=== PATIENT | male | born 1995 | race Caucasian/White ===

== ENCOUNTER 2022-10-18 10:25 | Emergency (ER) | payer SELFPAY ==
[2022-10-18 10:43] VITALS: BP 132/83; PULSE 73; RESP 17; TEMP 37.3; O2SAT 97; BMI 21.7
--- NOTE | 2022-10-18 11:15 | XRR_ITS ---
PROCEDURE INFORMATION: Exam: XR Chest Exam date and time: 10/18/2022 11:38 AM Age: 27 years old Clinical indication: Shortness of breath; Additional info: Cough SOB, covid symptoms TECHNIQUE: Imaging protocol: Radiologic exam of the chest. Views: 1 view. COMPARISON: No relevant prior studies available. FINDINGS: Lungs: Unremarkable. No consolidation. Pleural spaces: Unremarkable. No pleural effusion. No pneumothorax. Heart/Mediastinum: Unremarkable. No cardiomegaly. Bones/joints: Unremarkable. XR/XR chest 1V portable [id number] IMPRESSION: No acute findings.
--- NOTE | 2022-10-18 11:15 | W.ED.COVID ---
HPI - COVID General: Chief Complaint: COVID symptoms Stated Complaint: NVD/Fever Time Seen by Provider: 10/18/22 10:51 History of Present Illness: Patient is a 27-year-old man that presents to the emergency department with complaints of nausea vomiting diarrhea sore throat and headache. Onset of symptoms 2 days ago. Patient has had unknown COVID exposure. Patient unsure if he has been running fevers Patient denies any abdominal pain other when vomiting Denies chest pain or shortness of breath Denies weight gain weight loss Denies dysuria symptoms COVID Results: SARS-CoV-2 Antigen (Rapid) positive (Negative) H 10/18/22 11:20 Review of Systems General: Reports: 10 or more systems reviewed and unremarkable except in HPI and below Physical Exam Const: COMMON NORMALS: no acute distress, patient oriented x3 and alert GENERAL APPEARANCE: cooperative ORIENTATION/CONSCIOUSNESS: Yes awake, Yes oriented to person, Yes oriented to place and Yes oriented to time HENMT: COMMON NORMALS: normocephalic and atraumatic HEAD & SCALP: normocephalic and atraumatic FACE & SINUS: normal facial exam MOUTH: Normal oral and palatal mucosa present THROAT: posterior oropharynx normal Eye: COMMON NORMALS: Equal, round and reactive pupils present, EOMs intact bilaterally, conjunctivae normal and no scleral icterus GENERAL EYE: appearance normal, both eyes and all related structures ALIGNMENT: Yes alignment normal PERIORBITAL: periorbital findings normal CONJUNCTIVA: Yes conjunctivae normal PUPIL: Yes Equal, round and reactive pupils present Neck/C-Spine: COMMON NORMALS: full ROM GENERAL: Yes normal visual inspection Lymph: LYMPHATIC: no lymphadenopathy noted Chest: COMMONS NORMALS: normal inspection of the chest Breast/axilla inspection: Yes no chest deformity, asymmetry, normal contours, no nodules, masses, tenderness Resp: COMMON NORMALS: normal respiratory effort, No retractions, No use of accessory muscles and clear to auscultation bilaterally EFFORT & INSPECTION: Yes able to speak in complete sentences and Yes symmetric chest movement AUSCULTATION: clear to auscultation bilaterally Cardio: COMMON NORMALS: regular rate, regular rhythm and Peripheral pulses 2+ throughout RATE: regular rate RHYTHM: regular rhythm PERIPHERAL PULSES: Peripheral pulses 2+ throughout GI: COMMON NORMALS: Normal to inspection, nondistended, normoactive bowel sounds present, Soft to palpation, non-tender and No hepatosplenomegaly present INSPECTION: Yes normal to inspection AUSCULTATION: Yes normoactive bowel sounds PALPATION: Yes Soft to palpation and Yes No hepatosplenomegaly present RECTAL EXAM: Yes deferred Extremity: COMMON NORMALS: normal to inspection GENERAL: Yes normal exam except as noted Neuro: COMMON NORMALS: patient oriented x3 SENSORIUM/ORIENTATION: Yes alert, Yes oriented to person, Yes oriented to place and Yes oriented to time CRANIAL NERVES: Yes CN normal except as noted Psych: COMMON NORMALS: mental status grossly normal, Normal thought process present, cooperative, activity/motor behavior normal, denies homicidal ideation and denies suicidal ideation THOUGHT PROCESS: Normal thought process present Skin: COMMON NORMALS: no rashes or lesions noted, no wounds and turgor normal GENERAL SKIN EXAM: no rashes or lesions noted and turgor normal Course Vital Signs: Vital signs: Vital Signs Temperature 99.1 F 10/18/22 10:43 Pulse Rate 50 L 10/18/22 12:30 Respiratory Rate 18 10/18/22 11:19 Blood Pressure 121/76 10/18/22 11:19 Pulse Oximetry 100 10/18/22 12:30 Oxygen Delivery Me thod Room Air 10/18/22 12:30 MDM - COVID Medical Decision Making Patient was evaluated in the emergency department for complaints of COVID-like symptoms. Differential diagnoses include: COVID, pneumonia, bronchitis, URI, pharyngitis, migraine Patient underwent chest x-ray and a COVID test. COVID-positive Chest x-ray is negative Patient was treated here in the emergency department with Zofran and Toradol. Seen and discharged home on the same medications. He needs supportive care. This includes regular exercise and plenty of fluids Patient needs to continue quarantining. Onset of symptoms were 2 days ago. States today is day 2. He needs to quarantine through ?10/22/2022 If he is running a fever after that he needs to continue to quarantine All questions answered Lab Data Radiology Impressions Chest X-Ray 10/18/22 11:15 IMPRESSION: No acute findings. Laboratory Results SARS-CoV-2 Ag (Rapid) positive (Negative) H 10/18/22 11:20 SARS-CoV-2 Antigen (Rapid) positive (Negative) H 10/18/22 11:20 Discharge Plan Discharge Patient Disposition: Home Clinical Impression: COVID Condition: Stable Prescriptions: New ondansetron 4 mg tablet,disintegrating 4 mg PO Q8H 5 Days Qty: 15 0RF ketorolac 10 mg tablet 10 mg PO TID PRN (Reason: pain) 5 Days Qty: 15 0RF Discharge Orders: Discharge ED (Routine); Ordered 10/18/22 Ordered By: Jose Martin Salomon Discharge Diet: Advance as tolerated Discharge Activity: Resume usual activity Patient Instructions: How To Wash Your Hands (ED), Droplet Precautions (ED), COVID-19 (Coronavirus Disease 2019) (ED), COVID-19: Slow the Coronavirus Spread (ED), Pain Management Activity Restrictions/Additional Instructions: Quarantine until 10/22/2022 If you are still running a temperature you need to continue quarantine Stand Alone Forms: Work/School Release Coding Level of Care Code 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
[2022-10-18 11:19] VITALS: BP 121/76; PULSE 69; RESP 18; O2SAT 97
[2022-10-18 11:44] VITALS: O2SAT 97
[2022-10-18 12:24] LABS: SARS Covid-2 Antigen positive (Negative)
[2022-10-18 12:30] VITALS: PULSE 50; O2SAT 100
[2022-10-18] MEDS: ondansetron 4 MG Tablet PO (13:23)
[2022-10-18] MEDS: ketorolac 60 mg/2 mL INJ IM (13:26)
[2022-10-18 13:27] VITALS: PULSE 54; O2SAT 99
== END 2022-10-18 13:28 | disposition home or self-care (01) ==
PROVIDERS: Emergency Provider Nurse Practitioner
DX: U07.1 COVID-19 (principal)
CPT/HCPCS: 71045; 87426; 96372; 99284; J1885; Q0162

== ENCOUNTER 2023-08-21 10:46 | Emergency (ER) | payer MEDICAID, SELFPAY ==
[2023-08-21 11:02] VITALS: BP 110/69; PULSE 76; RESP 18; TEMP 36.7; O2SAT 99; BMI 21.7
[2023-08-21 12:12] LABS: Add Urine Microscopic? NO; Charge for UA Resulting for Rev
[2023-08-21 12:14] LABS: Bilirubin Urine Neg (Negative); Blood Urine Neg (Negative); Glucose Urine UA Norm (Normal); Ketones Urine Negative (Negative); Leukocyte Esterase Urine Negative (Negative); Nitrate Urine Negative (Negative); Protein Urine Neg (Negative); Specific Gravity, Urine 1.015 (1.005-1.030); Urine Appearance Clear (CLEAR); Urine Color Yellow (Yellow); Urobilinogen Urine Norm (Negative); pH Urine 5 (5-7)
--- NOTE | 2023-08-21 12:14 | ED_ITS ---
HPI - Male Genitourinary General: Chief complaint: Urogenital-Male Stated complaint: unable to pee Time Seen by Provider: 08/21/23 10:53 Source: patient Mode of arrival: ambulatory Limitations: no limitations History of Present Illness: 28-year-old male states he has noticed a lump at the base of his penis on the left side over the last 2 to 3 days. States has had some pain he had some difficulty urinating as well. He denies any severe dysuria denies any penile discharge. Denies any testicle pain. Associated symptoms: Deny nausea or vomiting Review of Systems Const: Denies: fever(s), chills, body aches or change in appetite ENMT: Denies: throat pain or dental pain Card: Denies: chest pain Resp: Denies: dyspnea GI: Denies: abdominal pain, nausea, vomiting or diarrhea : Reports: difficulty starting urination and genital pain Musc: Denies: neck pain or back pain Skin/Breast: Denies: rash Neuro: Denies: headache(s) Physical Exam Const: COMMON NORMALS: no acute distress, patient oriented x3 and healthy appearing HENMT: COMMON NORMALS: normocephalic and atraumatic HEAD & SCALP: normocephalic and atraumatic Neck/C-Spine: COMMON NORMALS: full ROM Chest: COMMONS NORMALS: normal inspection of the chest Resp: COMMON NORMALS: normal respiratory effort GI: COMMON NORMALS: Normal to inspection, nondistended, normoactive bowel sounds present, Soft to palpation, non-tender and no masses PALPATION: Yes Soft to palpation : OTHER: Palpable spot in the left groin likely a lymph node penile and testicle exam is benign no ulcers Extremity: COMMON NORMALS: normal to inspection and full ROM Neuro: COMMON NORMALS: patient oriented x3, moves all extremities and no focal motor deficits Psych: COMMON NORMALS: mental status grossly normal, Normal thought process present and cooperative THOUGHT PROCESS: Normal thought process present Skin: COMMON NORMALS: no rashes or lesions noted and no wounds GENERAL SKIN EXAM: no rashes or lesions noted Course Vital Signs: Vital signs: Vital Signs Temperature 98.0 F 08/21/23 11:02 Pulse Rate 76 08/21/23 11:02 Respiratory Rate 18 08/21/23 11:02 Blood Pressure 110/69 08/21/23 11:02 Pulse Oximetry 99 08/21/23 11:02 Oxygen Delivery Me thod Room Air 08/21/23 11:02 MDM - Male Medical Decision Making Patient presents here with likely lymph node left groin did treat him with Rocephin azithromycin no signs of ulcers testicle exam is benign he is to follow-up with his PCP he is return if worsening he understands agrees to plan. Medical Records I reviewed the patient's medical records. Lab Data I reviewed the patient's lab results. Laboratory Results Urine Color Yellow (Yellow) 08/21/23 11:56 Urine Appearance Clear (CLEAR) 08/21/23 11:56 Urine pH 5 (5-7) 08/21/23 11:56 Ur Specific [place] 1.015 (1.005-1.030) 08/21/23 11:56 Urine Protein Neg (Negative) 08/21/23 11:56 Urine Glucose (UA) Norm (Normal) 08/21/23 11:56 Urine Ketones Negative (Negative) 08/21/23 11:56 Urine Blood Neg (Negative) 08/21/23 11:56 Urine Nitrate Negative (Negative) 08/21/23 11:56 Urine Bilirubin Neg (Negative) 08/21/23 11:56 Urine Urobilinogen Norm mg/dL (Negative) 08/21/23 11:56 Ur Leukocyte Esterase Negative (Negative) 08/21/23 11:56 No radiology studies performed this visit Discharge Plan Discharge Patient Disposition: Home Clinical Impression: Lymphadenopathy Condition: Stable Discharge Orders: Discharge ED (Routine); Ordered 08/21/23 Ordered By: Hadley Sorenesn Discharge Diet: Advance as tolerated Discharge Activity: Resume usual activity Patient Instructions: Lymphadenopathy (ED) Coding Level of Care Code 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
[2023-08-21] MEDS: azithromycin 250 mg Tablet 1000 MG PO (12:38)
[2023-08-21] MEDS: cefTRIAXone 1,000 MG in water for injection-sterile 2.1 ML 999 MG IM (12:39)
[2023-08-23 15:05] LABS: Chlamydia Trachomatis RNA TMA NOT DETECTED (NOT DETECTED); Neisseria Gonorrhoeae RNA, TMA NOT DETECTED (NOT DETECTED)
== END 2023-08-21 12:57 | disposition home or self-care (01) ==
PROVIDERS: Emergency Provider Emergency Medicine
DX: R59.0 Localized enlarged lymph nodes (principal)
CPT/HCPCS: 81003; 87491; 87591; 96372; 99284; J0696; Q0144

== ENCOUNTER 2023-11-04 11:36 | Emergency (ER) | payer MEDICAID, SELFPAY ==
[2023-11-04 11:44] VITALS: BP 129/67; PULSE 81; RESP 18; TEMP 36.6; O2SAT 97; BMI 20.3
--- NOTE | 2023-11-04 12:20 | W.ED.URI ---
HPI - URI/Sore Throat General: Chief Complaint: Upper Respiratory Infection Stated Complaint: covid signs Time Seen by Provider: 11/04/23 12:15 Source: patient Mode of arrival: ambulatory Limitations: no limitations History of Present Illness: 28-year-old male states he been having nasal congestion cough along with itchy eyes for the last 2 days. States got sent home from work today because they are concerned he may have COVID he denies any fevers denies any severe dyspnea denies any pain anywhere. He denies any worsening proving factors Associated symptoms: Reports nasal congestion; Deny abdominal pain, chills, chest pain, diarrhea, fever(s), headache(s), nausea or vomiting Related Data Allergies Allergy/AdvReac Type Severity Reaction Status Date / Time morphine Allergy ALGY-Anaphy Verified 08/21/23 11:05 laxis Penicillins Allergy ALGY-Anaphy Verified 08/21/23 11:05 laxis Review of Systems Const: Denies: fever(s), chills, body aches or change in appetite ENMT: Reports: nasal congestion; Denies: throat pain or dental pain Card: Denies: chest pain Resp: Reports: non-productive cough; Denies: dyspnea GI: Denies: abdominal pain, nausea, vomiting or diarrhea Musc: Denies: neck pain or back pain Skin/Breast: Denies: rash Neuro: Denies: headache(s) Physical Exam Const: COMMON NORMALS: no acute distress, patient oriented x3 and healthy appearing HENMT: COMMON NORMALS: normocephalic and atraumatic HEAD & SCALP: normocephalic and atraumatic Eye: COMMON NORMALS: conjunctivae normal CONJUNCTIVA: Yes conjunctivae normal Neck/C-Spine: COMMON NORMALS: full ROM and supple Chest: COMMONS NORMALS: normal inspection of the chest Resp: COMMON NORMALS: normal respiratory effort, No retractions, No use of accessory muscles and clear to auscultation bilaterally AUSCULTATION: clear to auscultation bilaterally Cardio: COMMON NORMALS: regular rate, regular rhythm and No murmurs present (Cardio) RATE: regular rate RHYTHM: regular rhythm Extremity: COMMON NORMALS: normal to inspection and full ROM Neuro: COMMON NORMALS: patient oriented x3, moves all extremities and no focal motor deficits Psych: COMMON NORMALS: mental status grossly normal, Normal thought process present and cooperative THOUGHT PROCESS: Normal thought process present Skin: COMMON NORMALS: no rashes or lesions noted and no wounds GENERAL SKIN EXAM: no rashes or lesions noted Course Vital Signs: Vital signs: Vital Signs Temperature 97.9 F 11/04/23 11:44 Pulse Rate 81 11/04/23 11:44 Respiratory Rate 18 11/04/23 11:44 Blood Pressure 129/67 11/04/23 11:44 Pulse Oximetry 97 11/04/23 11:44 Oxygen Delivery Me thod Room Air 11/04/23 11:44 MDM - URI/Sore Throat Medical Decision Making Patient presents with upper respiratory-like infection. He is well-appearing here in no distress did give him Decadron we will do a COVID flu RSV PCR he is stable for discharge at this point we will call him where he is to call us for his results. Medical Records I reviewed the patient's medical records. No radiology studies performed this visit Discharge Plan Discharge Patient Disposition: Home Clinical Impression: Upper respiratory infection Condition: Stable Discharge Orders: Discharge ED (Routine); Ordered 11/04/23 Ordered By: Hadley Sornesen Discharge Diet: Advance as tolerated Discharge Activity: Resume usual activity Patient Instructions: Upper Respiratory Infection (ED) Coding Level of Care Code ED Kitchen Work Supervisor for Jorge Nielsen
[2023-11-04 12:58] LABS: Covid PCR NEGATIVE (Negative); Influenza A NEGATIVE (Negative); Influenza B NEGATIVE (Negative); Respiratory Syncytial Virus Ce NEGATIVE (Negative)
[2023-11-04] MEDS: dexamethasone 10 mg/mL INJ IM (12:59)
== END 2023-11-04 13:01 | disposition home or self-care (01) ==
PROVIDERS: Emergency Provider Emergency Medicine
DX: J06.9 Acute upper respiratory infection, unspecified (principal)
CPT/HCPCS: 0241U; 96372; 99284; J1100

== ENCOUNTER 2023-12-04 14:22 | Emergency (ER) | payer MEDICAID, SELFPAY ==
[2023-12-04 14:29] VITALS: BP 104/55; PULSE 61; RESP 17; TEMP 36.5; O2SAT 99; BMI 20.3
[2023-12-04 15:01] VITALS: BP 102/60; PULSE 55; O2SAT 100
--- NOTE | 2023-12-04 15:01 | ED_ITS ---
HPI - Nausea/Vomiting/Diarrhea 2 General: Chief complaint: Nausea/Vomiting/Diarrhea Stated complaint: NVD Time Seen by Provider: 12/04/23 14:30 History of Present Illness: 28-year-old [facility] vomiting diarrhea that started yesterday. He said he is now dry heaving. He has not Anything down all day today. No fever. No focal abdominal pain. He says he was sent home from work. Related Data Previous Rx's Medication Instructions Recorded ondansetron 8 mg disintegrating 8 mg PO Q6H #14 tabs 12/04/23 tablet Allergies Allergy/AdvReac Type Severity Reaction Status Date / Time morphine Allergy ALGY-Anaphy Verified 08/21/23 11:05 laxis Penicillins Allergy ALGY-Anaphy Verified 08/21/23 11:05 laxis Review of Systems 2 Narrative: Constitutional symptoms: Negative except as documented in HPI. Skin symptoms: Negative except as documented in HPI. Eye symptoms: Negative except as documented in HPI. ENMT symptoms: Negative except as documented in HPI. Respiratory symptoms: Negative except as documented in HPI. Cardiovascular symptoms: Negative except as documented in HPI. Gastrointestinal symptoms: Negative except as documented in HPI. Genitourinary symptoms: Negative except as documented in HPI. Musculoskeletal symptoms: Negative except as documented in HPI. Neurologic symptoms: Negative except as documented in HPI. Psychiatric symptoms: Negative except as documented in HPI. Endocrine symptoms: Negative except as documented in HPI. Physical Exam 2 Narrative: EXAM NARRATIVE: General: Alert, no acute distress. Skin: Warm, dry. Head: Normocephalic, atraumatic. Neck: Supple, trachea midline. Eye: Extraocular movements are intact. Ears, nose, mouth and throat: mucosa moist. Cardiovascular: Regular, Normal peripheral perfusion. Respiratory: Lungs are clear to auscultation, respirations are non-labored, breath sounds are equal, Symmetrical chest wall expansion. Gastrointestinal: Soft, Nontender, Non distended Musculoskeletal: Normal ROM, no deformity. Neurological: Alert and oriented, No focal neurological deficit observed. Psychiatric: Cooperative, appropriate mood & affect. Course 2 Vital Signs: Vital signs: Vital Signs Temperature 97.7 F 12/04/23 14:29 Pulse Rate 55 L 12/04/23 15:01 Respiratory Rate 17 12/04/23 14:29 Blood Pressure 102/60 12/04/23 15:01 Pulse Oximetry 100 12/04/23 15:01 Oxygen Delivery Me thod Room Air 12/04/23 15:01 MDM - Nausea/Vomiting/Diarrhea Medical Decision Making Medical decision making: Differential diagnosis for this patient with nausea and vomiting including but not limited to and based on the above HPI, review of systems and physical exam: Urinary tract infection. Appendicitis. Cholecystis. colitis. small bowel obstruction. crohn's flare. pancreatitis. gastritis. peptic ulcer. cyclic vomiting. Viral illness. Influenza. COVID. - Workup - labwork and imaging ordered to evaluate, rule in and rule out above pathologies. Lab Review: Laboratory results were reviewed and interpreted by myself the emergency room physician. No leukocytosis. No anemia. No renal failure. Urinalysis is clear of infection. I reviewed the patient's medical record. Reexamination: Patient is tolerating fluids. Says he feels quite a bit better after receiving Zofran. No increased work of breathing. No altered mental status. Assessment and plan: Viral gastroenteritis ?Total of 12 of Zofran and 40 IV Pepcid. - Discharged home - Discussed plan with patient. Answered any questions. - Evaluation and treatment of this problem were appropriate in the emergency setting. Lab Data 12/04/23 15:34 12/04/23 15:34 Laboratory Results WBC 7.23 10^3/uL (3.29-11.43) 12/04/23 15:34 RBC 4.94 10^6/uL (3.85-5.65) 12/04/23 15:34 Hgb 14.60 g/dL (11.27-16.99) 12/04/23 15:34 Hct 44.1 % (37-53) 12/04/23 15:34 MCV 89.3 fl (82-101) 12/04/23 15:34 MCH 29.6 pg (27-33) 12/04/23 15:34 MCHC 33.1 g/dL (30-55) 12/04/23 15:34 RDW 12.9 % (12.1-15.1) 12/04/23 15:34 Plt Count 203 10^3/cmm (157-399) 12/04/23 15:34 MPV 10.9 fL (7.4-10.4) H 12/04/23 15:34 Neut % (Auto) 55.8 % 12/04/23 15:34 Lymph % (Auto) 32.9 % 12/04/23 15:34 Harmon % (Auto) 8.2 % 12/04/23 15:34 Eos % (Auto) 1.4 % 12/04/23 15:34 Baso % (Auto) 1.4 % 12/04/23 15:34 Neut # (Auto) 4.04 10^3/uL (1.8-7.7) 12/04/23 15:34 Lymph # (Auto) 2.4 10^3/uL (0.8-4.8) 12/04/23 15:34 Harmon # (Auto) 0.6 10^3/uL (0.2-0.9) 12/04/23 15:34 Eos # (Auto) 0.1 10^3/uL (0.0-0.8) 12/04/23 15:34 Baso # (Auto) 0.1 10^3/uL (0.0-0.1) 12/04/23 15:34 Nucleated RBC % (auto) 0 % 12/04/23 15:34 Nucleated RBCs # 0.0 /100WBC 12/04/23 15:34 Sodium 139 mmol/L (136-145) 12/04/23 15:34 Potassium 4.1 mmol/L (3.5-5.1) 12/04/23 15:34 Chloride 103 mmol/L (98-107) 12/04/23 15:34 Carbon Dioxide 28 mmol/L (22-29) 12/04/23 15:34 Anion Gap 12.1 (5-19) 12/04/23 15:34 BUN 11 mg/dL (6-20) 12/04/23 15:34 Creatinine 0.8 mg/dL (0.7-1.2) 12/04/23 15:34 GFR Calculation 116.0 mL/min (90-130) 12/04/23 15:34 Glucose 85 mg/dL (65-115) 12/04/23 15:34 Calculated Osmolality 287 mOsm/kg (285-295) 12/04/23 15:34 Calcium 8.5 mg/dL (8.5-10.5) 12/04/23 15:34 Total Bilirubin 0.5 mg/dL (0.15-1.2) 12/04/23 15:34 AST 21 U/L (0-40) 12/04/23 15:34 ALT 19 U/L (0-41) 12/04/23 15:34 Alkaline Phosphatase 52 U/L (40-130) 12/04/23 15:34 C-Reactive Protein 3.0 mg/L (0.0-4.9) 12/04/23 15:34 Total Protein 6.7 g/dL (6.6-8.7) 12/04/23 15:34 Albumin 4.3 g/dL (3.5-5.2) 12/04/23 15:34 Globulin 2.4 g/dL (1.3-4.6) 12/04/23 15:34 Lipase 40 U/L (13-60) 12/04/23 15:34 Urine Color Yellow (Yellow) 12/04/23 15:14 Urine Appearance Clear (CLEAR) 12/04/23 15:14 Urine pH 7.5 (5-7) 12/04/23 15:14 Ur Specific [place] 1.012 (1.005-1.030) 12/04/23 15:14 Urine Protein Negative (Negative) 12/04/23 15:14 Urine Glucose (UA) Negative (Normal) 12/04/23 15:14 Urine Ketones Negative (Negative) 12/04/23 15:14 Urine Blood Negative (Negative) 12/04/23 15:14 Urine Nitrate Negative (Negative) 12/04/23 15:14 Urine Bilirubin Negative (Negative) 12/04/23 15:14 Urine Urobilinogen 0.2 mg/dL (Negative) 12/04/23 15:14 Ur Leukocyte Esterase Negative (Negative) 12/04/23 15:14 Urine RBC 0-2 /hpf (0-2) 12/04/23 15:14 Urine WBC 0-5 /hpf (0-5) 12/04/23 15:14 Ur Squamous Epith Cells 0-5 /hpf (0-5) 12/04/23 15:14 Amorphous Sediment Not Reportable 12/04/23 15:14 Urine Bacteria None seen /hpf (NONE) 12/04/23 15:14 Hyaline Casts 0-4 /lpf H 12/04/23 15:14 Urine Opiates Screen Negative ng/mL (Negative) 12/04/23 15:14 Ur Barbiturates Screen Negative ng/mL (Negative) 12/04/23 15:14 Ur Phencyclidine Scrn Negative ng/mL (Negative) 12/04/23 15:14 Ur Amphetamines Screen Negative ng/mL (Negative) 12/04/23 15:14 U Benzodiazepines Scrn Negative ng/mL (Negative) 12/04/23 15:14 Urine Cocaine Screen Negative ng/mL (Negative) 12/04/23 15:14 U Marijuana (THC) Screen Positive ng/mL (Negative) H 12/04/23 15:14 No radiology studies performed this visit Discharge Plan Discharge Patient Disposition: Home Clinical Impression: Gastroenteritis Condition: Stable Prescriptions: New ondansetron 8 mg tablet,disintegrating 8 mg PO Q6H Qty: 14 0RF Rx Instructions: Take 1/2-1 tab every 6 hours as needed for nausea and vomiting Discharge Orders: Discharge ED (Routine); Ordered 12/04/23 Ordered By: Precious Woods Discharge Diet: Advance as tolerated Patient Instructions: Gastroenteritis (ED) Activity Restrictions/Additional Instructions: Thank you for choosing [facility] for your healthcare needs today. Please realize this is an emergency room and that we are providing you with a medical screening exam and this may not be complete and all inclusive of all the testing and or work up that you may need to determine your ailment or severity of your illness. You have been screened and evaluated and felt safe for discharge. Health conditions do change or evolve sometimes and as such it is important that you follow up with your Primary Doctor to be re checked, 3-5 days is a general good time frame for follow up. You are always welcome to return to the ED for re assessment if your symptoms are worsening or you have new concerns Stand Alone Forms: Work/School Release Coding Level of Care Code ED Aerial Installer for Jorge Nielsen
[2023-12-04 15:26] LABS: Bilirubin Urine Negative (Negative); Blood Urine Negative (Negative); Glucose Urine UA Negative (Normal); Ketones Urine Negative (Negative); Leukocyte Esterase Urine Negative (Negative); Nitrate Urine Negative (Negative); Protein Urine Negative (Negative); Specific Gravity, Urine 1.012 (1.005-1.030); Urine Appearance Clear (CLEAR); Urine Color Yellow (Yellow); Urobilinogen Urine 0.2 mg/dL (Negative); pH Urine 7.5 (5-7)
[2023-12-04 15:30] LABS: Bacteria Urine None Seen /hpf; Hyaline Casts Urine 0-4 /lpf; RBC Urine 0-2 /hpf (0-2); Squamous Epithelial Cell Urine 0-5 /hpf (0-5); WBC Urine 0-5 /hpf (0-5)
[2023-12-04 15:33] LABS: Amphetamines Screen Urine Negative (Negative); Barbiturates Screen Urine Negative (Negative); Benzodiazepines Screen Urine Negative (Negative); Cocaine Screen Urine Negative (Negative); Opiate Screen Urine Negative (Negative); PCP Screen Urine Negative (Negative); THC Screen Urine Positive (Negative)
[2023-12-04 15:56] LABS: Basophils # 0.1 10^3/uL (0.0-0.1); Basophils % 1.4 %; Eosinophils # 0.1 10^3/uL (0.0-0.8); Eosinophils % 1.4 %; Hematocrit 44.1 % (37-53); Lymphocytes # 2.4 10^3/uL (0.8-4.8); Lymphocytes % 32.9 %; Mean Corpuscular HGB Conc 33.1 g/dL (30-55); Mean Corpuscular Hemoglobin 29.6 pg (27-33); Mean Corpuscular Volume 89.3 fl (82-101); Mean Platelet Volume 10.9 fL (7.4-10.4); Monocytes # 0.6 10^3/uL (0.2-0.9); Monocytes % 8.2 %; Neutrophils # 4.04 10^3/uL (1.8-7.7); Neutrophils % 55.8 %; Nucleated Red Blood Cells % 0 %; Platelet Count 203 10^3/cmm (157-399); Red Blood Count 4.94 10^6/uL (3.85-5.65); Red Cell Distribution Width 12.9 % (12.1-15.1); White Blood Count 7.23 10^3/uL (3.29-11.43)
[2023-12-04] MEDS: ondansetron 2 mg/ML SDV 2 mL 8 MG IVP (16:16)
[2023-12-04 16:17] LABS: Alanine Aminotransferase 19 U/L (0-41); Albumin Level 4.3 g/dL (3.5-5.2); Alkaline Phosphatase 52 U/L (40-130); Anion Gap 12.1 (5-19); Aspartate Amino Transferase 21 U/L (0-40); Blood Urea Nitrogen 11 mg/dL (6-20); Calcium 8.5 mg/dL (8.5-10.5); Carbon Dioxide 28 mmol/L (22-29); Chloride 103 mmol/L (98-107); Creatinine Clr Calc Pharmacy 144.7334; Globulin 2.4 g/dL (1.3-4.6); Glucose 85 mg/dL (65-115); Lipase 40 U/L (13-60); Osmolality Calculated 287 mOsm/kg (285-295); Potassium 4.1 mmol/L (3.5-5.1); Sodium 139 mmol/L (136-145); Total Bilirubin 0.5 mg/dL (0.15-1.2); Total Protein 6.7 g/dL (6.6-8.7)
--- NOTE | 2023-12-04 16:38 | PC.NURSE ---
this nurse assumed pt care at 1600 from Me[facility] LAY.
[2023-12-04] MEDS: famotidine 20 mg/2 mL INJ 40 MG IVP (16:48)
[2023-12-04] MEDS: ondansetron 2 mg/ML SDV 2 mL 4 MG IVP (16:48)
[2023-12-04 16:59] VITALS: BP 106/65; PULSE 52; RESP 16; O2SAT 99
== END 2023-12-04 16:58 | disposition home or self-care (01) ==
PROVIDERS: Emergency Provider Emergency Medicine
DX: K52.9 Noninfective gastroenteritis and colitis, unspecified (principal)
CPT/HCPCS: 36415; 80053; 80306; 81001; 83690; 85025; 86140; 96374; 96375; 99284; J2405; J3490